=== PATIENT | female | born 1980 | race Caucasian/White ===

== ENCOUNTER 2016-09-09 01:11 | Emergency (ER) | payer MEDICAID ==
[2016-09-09] MEDS ORDERED: KETOROLAC 60 MG/2 ML VIAL IM ONE (02:29)
[2016-09-09] MEDS ORDERED: ORPHENADRINE 60 MG/2 ML AMP ONE (02:29)
== END 2016-09-09 03:23 | disposition home or self-care (01) ==
LOC: ER 01:11
DX: S13.4XXA Sprain of ligaments of cervical spine, initial encounter (principal); S33.5XXA Sprain of ligaments of lumbar spine, initial encounter; S93.401A Sprain of unspecified ligament of right ankle, initial encounter; W10.9XXA Fall (on) (from) unspecified stairs and steps, initial encounter; Y92.019 Unspecified place in single-family (private) house as the place of occurrence of the external cause
CPT/HCPCS: 72100; 96372